=== PATIENT | male | born 1990 ===

== ENCOUNTER 2016-07-14 20:41 | Emergency (ER) | payer OTHER ==
[~2016-07-14] VITALS: Ht 170.2 cm; Wt 76.0 kg
[2016-07-14 20:46] VITALS: TEMP 36.6; Ht 170.2 cm; Wt 76.0 kg
[2016-07-14] MEDS ORDERED: SODIUM CHLORIDE 0.9% 1000ML 1,000 ML IV STA (21:21)
[2016-07-14] MEDS ORDERED: ONDANSETRON INJ 2 MG/ML 2 ML VIAL IV STA (21:21)
--- NOTE | 2016-07-14 22:16 | EMERGENCY ROOM VISIT NOTE ---
History Report prepared by Una: Darryl Hernandes Under the Supervision of: Freddy BarberO. First contact with patient: 21:11 Chief Complaint: COUGH Stated Complaint: COUGH,VOMITING Nursing Triage Summary: Cough for 1 month, dry cough mostly. History of Present Illness The patient is a 25 year old male who presents to the Emergency Room with complaints of intermittent nausea and vomiting starting about a week ago. He has worsening symptoms with eating. He has had 3 vomiting episodes this week. His last vomiting episode was 2 days ago but he had dry heaves and gagging today. He reports a loss of appetite. He also reports a cough starting about a month and a half ago. The cough worsens at night. He has shortness of breath with coughing spells. The patient denies headache, fevers, chest pain, abdominal pain, diarrhea, or any other complaints. He traveled about 3 weeks ago and does not think he was exposed to anything. He denies any recent ill contacts. He does not have any medical problems. He denies any tobacco or alcohol use. Source of History: patient Onset: about a week ago Position: other (global) Quality: other (nausea and vomiting) Timing: intermittent Modifying Factors (Worsening): eating Associated Symptoms: + cough, No abdominal pain, No chest pain, No diarrhea , No fevers, No headache Review of Systems See HPI for pertinent positives & negatives. A total of 10 systems reviewed and were otherwise negative. Past Medical & Surgical Medical Problems: (1) Upper respiratory infection Family History No pertinent family history Social History Smoking Status: Never Smoker Drug Use: none Marital Status: single Housing Status: lives with roommate Occupation Status: [employer] student Current/Historical Medications Scheduled Albuterol Hfa (Ventolin Hfa), 1 PUFF INH Q4 Azithromycin (Zithromax), 500 MG PO DAILY Ondasetron Odt (Zofran Odt), 4 MG SL Q6H Ranitidine Hcl (Zantac), 150 MG PO BID Allergies Coded Allergies: No Known Allergies (Unverified , 07/14/16) Physical Exam Vital Signs Date Time Temp Pulse Resp B/P Pulse Ox O2 Delivery O2 Flow Rate FiO2 07/15/16 00:03 91 15 120/70 98 07/14/16 23:23 88 18 115/75 99 Room Air 07/14/16 22:27 89 07/14/16 20:48 94 Room Air 07/14/16 20:46 36.6 101 16 116/75 94 Room Air Physical Exam GENERAL: Patient is awake, alert, and in no acute distress. Patient is resting comfortably and showing no signs of anxiety EYES: The conjunctivae are clear. The pupils are round and reactive. EARS, NOSE, MOUTH AND THROAT: The nose is without any evidence of any deformity. Mucous membranes are moist tongue is midline NECK: The neck is nontender and supple. RESPIRATORY: Normal respiratory effort is noted there is no evidence of wheezing rhonchi or rales CARDIOVASCULAR: Regular rate and rhythm noted there no murmurs rubs or gallops normal S1 normal S2 GASTROINTESTINAL: The abdomen is soft. Bowel sounds are present in all quadrants. Abdomen is nontender MUSCULOSKELETAL/EXTREMITIES: There is no evidence of gross deformity full range of motion is noted in the hips and shoulders SKIN: There is no obvious evidence of any rash. There are no petechiae, pallor or cyanosis noted. NEUROLOGIC: Patient is awake alert and oriented x3 strength is symmetric patellar reflexes are 2+ bilaterally Medical Decision & Procedures ER Provider Diagnostic Interpretation: X-ray results as stated below per interpretation by me: CHEST X-RAY No definite infiltrate, heart size is normal, no free air, nonspecific bowel gas pattern, no acute disease. Laboratory Results 07/14/16 22:30 Red Blood Count 5.77, Mean Corpuscular Volume 77.8, Mean Corpuscular Hemoglobin 26.5, Mean Corpuscular Hemoglobin Concent 34.1, Mean Platelet Volume 10.7, Neutrophils (%) (Auto) 46.2, Lymphocytes (%) (Auto) 40.9, Monocytes (%) (Auto) 8.1, Eosinophils (%) (Auto) 3.3, Basophils (%) (Auto) 1.5, Neutrophils # (Auto) 1.55, Lymphocytes # (Auto) 1.37, Monocytes # (Auto) 0.27, Eosinophils # (Auto) 0.11, Basophils # (Auto) 0.05 07/14/16 22:30 Test 07/14/16 22:20 07/14/16 22:30 07/14/16 22:35 Urine Color YELLOW Urine Appearance CLEAR (CLEAR) Urine pH 7.5 (4.5-7.5) Urine Specific [place] 1.010 (1.000-1.030) Urine Protein NEG (NEG) Urine Glucose (UA) NEG (NEG) Urine Ketones NEG (NEG) Urine Occult Blood NEG (NEG) Urine Nitrite NEG (NEG) Urine Bilirubin NEG (NEG) Urine Urobilinogen NEG (NEG) Urine Leukocyte Esterase NEG (NEG) White Blood Count 3.35 K/uL (4.8-10.8) Red Blood Count 5.77 M/uL (4.7-6.1) Hemoglobin 15.3 g/dL (14.0-18.0) Hematocrit 44.9 % (42-52) Mean Corpuscular Volume 77.8 fL (80-100) Mean Corpuscular Hemoglobin 26.5 pg (25-34) Mean Corpuscular Hemoglobin Concent 34.1 g/dl (32-36) Platelet Count 141 K/uL (130-400) Mean Platelet Volume 10.7 fL (7.4-10.4) Neutrophils (%) (Auto) 46.2 % Lymphocytes (%) (Auto) 40.9 % Monocytes (%) (Auto) 8.1 % Eosinophils (%) (Auto) 3.3 % Basophils (%) (Auto) 1.5 % Neutrophils # (Auto) 1.55 K/uL (1.4-6.5) Lymphocytes # (Auto) 1.37 K/uL (1.2-3.4) Monocytes # (Auto) 0.27 K/uL (0.11-0.59) Eosinophils # (Auto) 0.11 K/uL (0-0.5) Basophils # (Auto) 0.05 K/uL (0-0.2) RDW Standard Deviation 37.4 fL (36.4-46.3) RDW Coefficient of Variation 13.3 % (11.5-14.5) Immature Granulocyte % (Auto) 0.0 % Immature Granulocyte # (Auto) 0.00 K/uL (0.00-0.02) Anion Gap 7.0 mmol/L (3-11) Est Creatinine Clear Calc Drug Dose 82.6 ml/min Estimated GFR () 89.1 Estimated GFR (Non- 76.9 BUN/Creatinine Ratio 13.1 (10-20) Calcium Level 8.8 mg/dl (8.5-10.1) Total Bilirubin 0.4 mg/dl (0.2-1) Direct Bilirubin < 0.1 mg/dl (0-0.2) Aspartate Amino Transf (AST/SGOT) 17 U/L (15-37) Alanine Aminotransferase (ALT/SGPT) 21 U/L (12-78) Alkaline Phosphatase 71 U/L (45-117) Total Protein 7.8 gm/dl (6.4-8.2) Albumin 4.6 gm/dl (3.4-5.0) Lipase 119 U/L (73-393) Laboratory results per my review. Medications Administered Medications (Trade) Dose Ordered Sig/Nancy Route Start Time Stop Time Status Last Admin Dose Admin Sodium Chloride (Nss 1000ml) 1,000 ml @ 999 mls/hr Q1H1M STAT IV 07/14/16 21:21 07/14/16 22:21 DC 07/14/16 21:21 999 MLS/HR Azithromycin (Zithromax Tab) 500 mg NOW STAT PO 07/14/16 23:36 07/14/16 23:37 DC 07/14/16 23:36 500 MG Albuterol (Ventolin Hfa Inhaler) 2 puffs NOW ONCE INH 07/14/16 23:45 07/14/16 23:46 DC 07/14/16 23:45 2 PUFFS Ondansetron HCl (ZOFRAN ODT 4MG Home Pack) 1 homepack UD ONCE PO 07/14/16 23:45 07/14/16 23:46 DC 07/14/16 23:45 1 HOMEPACK ED Course 2110: The patient was evaluated in room B07. A complete history and physical examination were performed. 2120: Sodium Chloride 1000 ml @ 999 mls/hr IV 2335: Azithromycin 500 mg PO 2345: Ondansetron HCl 1 homepack PO, Albuterol 2 puffs INH. Upon reevaluation, the patient is resting comfortably. I discussed the results and treatment plan with him. He verbalized agreement of the treatment plan. He was discharged home. Medical Decision Differential diagnosis: Etiologies such as infections, reactive airway disease, pneumonia, pneumothorax , COPD, CHF, cardiac ischemia, pulmonary embolism, musculoskeletal, gastrointestinal, as well as others were entertained. Nursing notes reviewed. The patient is a 25-year-old male who presented to the emergency department for evaluation of cough and posttussive emesis. The patient states that he's had cough and other symptoms for approximately 3 weeks. The patient was treated with IV fluids and IV antiemetics. I discussed patient's laboratory radiographic studies with him. He did not have chest pain or any shortness of breath at this time. He was started on antibiotic as well as bronchodilator therapy. He was encouraged to continue all medications as prescribed and follow- up with [facility] this week. He was also encouraged to rest and avoid any strenuous activity. He was also encouraged to return the emergency department immediately if symptoms change worsen or the need arises. Impression Primary Impression: Bronchitis Additional Impression: Post-tussive emesis Scribe Attestation The scribe's documentation has been prepared under my direction and personally reviewed by me in its entirety. I confirm that the note above accurately reflects all work, treatment, procedures, and medical decision making performed by me. Departure Information Dispostion Home / Self-Care Prescriptions Ranitidine Hcl (ZANTAC) 150 Mg Tab 150 MG PO BID, #60 TAB Prov: Pepito Pretty, DO 07/14/16 Albuterol Hfa (VENTOLIN HFA) 200 Puffs/40707 [place] 1 PUFF INH Q4, #1 INHALER Prov: Pepito Pretty, DO 07/14/16 Azithromycin (Zithromax) 500 Mg Tab 500 MG PO DAILY, #4 TAB Prov: Pepito Pretty, DO 07/14/16 Ondasetron Odt (ZOFRAN ODT) 4 Mg Tab 4 MG SL Q6H for Nausea, #10 TAB Prov: Pepito Pretty, DO 07/14/16 Referrals [facility] Forms HOME CARE DOCUMENTATION FORM, IMPORTANT VISIT INFORMATION Patient Instructions Bronchitis Acute, [facility] Additional Instructions Follow-up with [facility] this week for reevaluation. Rest and avoid any strenuous activity. Continue all medications as prescribed. Problem Qualifiers
[2016-07-14 23:00] LABS: URINE APPEARANCE CLEAR (CLEAR); URINE BILIRUBIN NEG (NEG); URINE COLOR YELLOW; URINE NITRITE NEG (NEG); URINE PH 7.5 (4.5-7.5); UROBILINOGEN NEG (NEG)
[2016-07-14 23:02] LABS: BASO % 1.5 %; BASO ABS # 0.05 K/uL (0-0.2); COMPLETE YES; EOS % 3.3 %; HEMATOCRIT 44.9 % (42-52); LYMPH % 40.9 %; LYMPH ABS # 1.37 K/uL (1.2-3.4); MEAN CELL VOLUME 77.8 fL (80-100); MEAN CORPUSCULAR HEMOGLOBIN 26.5 pg (25-34); MEAN CORPUSCULAR HGB CONC 34.1 g/dl (32-36); MEAN PLATELET VOLUME 10.7 fL (7.4-10.4); MONO % 8.1 %; NEUT % 46.2 %; PLATELET COUNT 141 K/uL (130-400); RED BLOOD COUNT 5.77 M/uL (4.7-6.1); WHITE BLOOD COUNT 3.35 K/uL (4.8-10.8)
[2016-07-14 23:06] LABS: MANUAL MICROSCOPIC REQUIRED? NO; REVIEW REQ? NO
[2016-07-14 23:15] LABS: ALT/SGPT 21 U/L (12-78); BLOOD UREA NITROGEN 17 mg/dl (7-18); BUN/CREATININE RATIO 13.1 (10-20); CALCIUM 8.8 mg/dl (8.5-10.1); CARBON DIOXIDE 30 mmol/L (21-32); CHLORIDE 105 mmol/L (98-107); GLUCOSE 96 mg/dl (70-99); POTASSIUM 3.9 mmol/L (3.5-5.1); SODIUM 142 mmol/L (136-145)
[2016-07-14 23:18] LABS: ALKALINE PHOSPHATASE 71 U/L (45-117); AST/SGOT 17 U/L (15-37)
[2016-07-14] MEDS ORDERED: AZITHROMYCIN 250 MG TAB PO STA (23:36)
[2016-07-14] MEDS ORDERED: VNTHFA/IN INH (23:40)
[2016-07-14] MEDS ORDERED: AZIT500T26 PO (23:40)
[2016-07-14] MEDS ORDERED: ONDA4TAB10 SL (23:40)
[2016-07-14] MEDS ORDERED: RANI150T3 PO (23:45)
[2016-07-14] MEDS ORDERED: ONDANSETRON HOME PACK 4MG OD TAB PO ONE (23:45)
[2016-07-14] MEDS ORDERED: ALBUTEROL HFA 8 GM INHALER INH ONE (23:45)
[2016-07-15 00:03] VITALS: BP 120/70; PULSE 91; O2SAT 98
--- NOTE | 2016-07-15 06:43 | DIAGNOSTIC IMAGING REPORT ---
ABDOMEN 2VIEW W/PA CHEST RTN CLINICAL HISTORY: Generalized abdominal pain COMPARISON STUDY: 08/02/2015 FINDINGS: The erect chest reveals no free air. There is no focal pulmonary consolidation. Erect and supine views the abdomen reveal no abnormally dilated loops of large or small bowel. There are no transition zones indicate bowel obstruction. No renal calculi are visualized. IMPRESSION: No evidence of bowel obstruction. No evidence of free air. Electronically signed by: Ramiro Christian M.D. 07/15/2016 6:42 AM Dictated Date/Time: 07/15/2016 6:41 AM
[2016-07-16 13:30] LABS: BORDETELLA PERTUSSIS SOURCE Nasal Swab
== END 2016-07-15 00:03 | disposition home or self-care (01) ==
LOC: C.EDB 20:42
DX: J40 Bronchitis, not specified as acute or chronic (principal); R11.10 Vomiting, unspecified